=== PATIENT | female | born 1980 | race Two or more races ===

== ENCOUNTER 2023-06-12 12:51 | Inpatient (IN) | payer MEDICAID, OTHER ==
[~2023-06-12] VITALS: Ht 149.9 cm; Wt 95.2 kg
[2023-06-12] MEDS: NICOTINE 7MG/24HR TOPICAL PATCH TD ONE (02:46)
[2023-06-12 13:18] LABS: Basophils # (auto) 0.1 10 ^3/uL (0-0.2); Eosinophils # (auto) 0.5 10 ^3/uL (0-0.8); Eosinophils % (auto) 3.8 % (0.0-7.0); Hematocrit 45.8 % (36.0-46.0); Hemoglobin 15.1 g/dL (12.2-16.2); Lymphocytes # (auto) 4.9 10 ^3/uL (0.4-5.4); Lymphocytes % (auto) 36.4 % (10.0-50.0); Mean Corpuscular Hemoglobin 29.2 pg (28.0-32.0); Mean Corpuscular Volume 88.6 fL (80.0-100.0); Monocytes # (auto) 0.6 10 ^3/uL (0-1.3); Monocytes % (auto) 4.6 % (0.0-12.0); Neutrophils # (auto) 7.3 10 ^3/uL (1.6-8.6); Neutrophils % (auto) 54.2 % (37.0-80.0); Nucleated Red Blood Cells % 0.1 %; Red Blood Cells 5.17 10^6/uL (4.0-5.20); Red Cell Distribution Width 13.6 % (11.8-14.3); White Blood Cell 13.5 10^3/uL (4.4-10.8)
[2023-06-12 13:30] LABS: Alanine Aminotransferase 24 U/L (7-40); Albumin 4.9 g/dL (3.2-4.8); Alkaline Phosphatase 95 U/L (46-116); Anion Gap 5 (5-15); Aspartate Aminotransferase 20 U/L (13-40); BUN/Creatinine Ratio 12.8 (10.0-20.0); Bilirubin, Total 0.3 mg/dL (0.2-1.0); Blood Urea Nitrogen 10 mg/dL (9-23); Calcium 10.1 mg/dL (8.7-10.4); Carbon Dioxide 29 mmol/L (20-30); Chloride 106 mmol/L (98-107); Glucose 102 mg/dL (74-106); Magnesium 2.2 mg/dL (1.6-2.6); Potassium 4.4 mmol/L (3.5-5.1); Sodium 140 mmol/L (136-145); Total Protein 7.8 g/dL (5.7-8.2)
[2023-06-12 13:34] LABS: INR 1.01 (0.9-1.15); Partial Thromboplastin Time 31.5 SEC (24.5-34.5); Prothrombin Time 10.6 sec (9.3-11.8)
[2023-06-12] MEDS: SODIUM CHLORIDE 0.9% 1,000 ML IV SCH (17:30)
[2023-06-12] MEDS ORDERED: NITROGLYCERIN 0.4 MG SL TAB SL PRN (17:30)
[2023-06-12] MEDS ORDERED: MORPHINE SULFATE INJ 2 MG/ml SYRG IV PRN (17:30)
[2023-06-12 18:16] LABS: Urine Bacteria NONE SEEN /hpf (None Seen); Urine Blood Negative /uL (Negative); Urine Clarity HAZY (Clear); Urine Color Yellow (Yellow); Urine Mucus FEW (None Seen); Urine Protein, UAD Negative (Negative); Urine Specific Gravity 1.026 (1.001-1.035); Urine Urobilinogen Normal (Negative); Urine WBC 6 /hpf (0 - 5)
[2023-06-12 18:19] LABS: Amphetamine Screen, Urine Neg (NEGATIVE); Barbiturate Scree,Urine Neg (NEGATIVE); Benzodiazephine Screen, Urine Neg (NEGATIVE); Cannabinoid Screen, Urine Neg (NEGATIVE); Cocaine Screen, Urine Neg (NEGATIVE); Opiate Scree,Urine Neg (NEGATIVE); Phencyclidine Screen, Urine Neg (NEGATIVE)
[2023-06-12 20:08] LABS: Triglycerides 254 mg/dL (< 150)
[2023-06-12 20:09] LABS: LDL Cholesterol 152 mg/dL (< 100)
[2023-06-12 20:10] LABS: Cholesterol 225 mg/dL (< 200); HDL Cholesterol 58 mg/dL (40-59)
[2023-06-12] MEDS: SODIUM CHLOR 0.9% PF (SALINE LOCK) 10ML VIAL/SYR IV SCH (22:00)
[2023-06-13] VITALS (8 sets, daily range): BP systolic 148–154; BP diastolic 84–97; PULSE 86–109; RESP 18–22; TEMP 97.6–97.8; O2SAT 96–99
[2023-06-13] MEDS: cefTRIAXone 1GM/50ML D5W 50 ML IV ONE (02:42)
[2023-06-13] MEDS: SERTRALINE HCL 50 MG TAB PO ONE (02:42)
[2023-06-13] MEDS: ASPirin 325 MG TAB PO ONE (02:44)
[2023-06-13] MEDS: SODIUM CHLORIDE 0.9% 1,000 ML IV ONE (02:44)
[2023-06-13] MEDS: NITROGLYCERIN 0.4 MG SL TAB SL ONE (02:46)
[2023-06-13] MEDS: ATORVASTATIN 20 MG TAB PO SCH (02:57)
[2023-06-13 05:30] LABS: Basophils # (auto) 0.1 10 ^3/uL (0-0.2); Basophils % (auto) 0.8 % (0.0-2.0); Eosinophils # (auto) 0.6 10 ^3/uL (0-0.8); Eosinophils % (auto) 5.4 % (0.0-7.0); Hematocrit 43.2 % (36.0-46.0); Hemoglobin 14.1 g/dL (12.2-16.2); Lymphocytes # (auto) 4.8 10 ^3/uL (0.4-5.4); Lymphocytes % (auto) 41.7 % (10.0-50.0); Mean Corpuscular Hemoglobin 29.2 pg (28.0-32.0); Mean Corpuscular Hgb Conc. 32.7 g/dL (32.0-36.0); Mean Corpuscular Volume 89.4 fL (80.0-100.0); Monocytes # (auto) 0.8 10 ^3/uL (0-1.3); Monocytes % (auto) 6.5 % (0.0-12.0); Neutrophils # (auto) 5.3 10 ^3/uL (1.6-8.6); Neutrophils % (auto) 45.6 % (37.0-80.0); Nucleated Red Blood Cells % 0.1 %; Red Blood Cells 4.83 10^6/uL (4.0-5.20); Red Cell Distribution Width 13.7 % (11.8-14.3); White Blood Cell 11.6 10^3/uL (4.4-10.8)
[2023-06-13 05:45] LABS: Calcium 9.6 mg/dL (8.5-10.1); Carbon Dioxide 26 mmol/L (20-30)
[2023-06-13 05:51] LABS: BUN/Creatinine Ratio 12.3 (10.0-20.0); Blood Urea Nitrogen 9 mg/dL (9-23); Glucose 97 mg/dL (74-106)
[2023-06-13 05:52] LABS: Free T3 3.3 pg/mL (2.3-4.2); Free T4 (Free Thyroxine) 1.23 ng/dL (0.89-1.76)
[2023-06-13 06:02] LABS: Anion Gap 7 (5-15); Chloride 106 mmol/L (98-107); Potassium 4.2 mmol/L (3.5-5.1); Sodium 139 mmol/L (136-145)
[2023-06-13] MEDS: ERGOCALCIFEROL 50,000 UNIT(1.25MG) CAP PO SCH (08:36)
[2023-06-13] MEDS: NICOTINE 7MG/24HR TOPICAL PATCH TD SCH (08:37)
[2023-06-13] MEDS: SERTRALINE HCL 50 MG TAB PO SCH (08:38)
[2023-06-13] MEDS: cefTRIAXone 1GM/50ML D5W 50 ML IV SCH (08:38)
[2023-06-13 12:59] LABS: Erythrocyte Sedimentation Rate 8 mm/hr (0-20)
[2023-06-13] MEDS: ONDANSETRON HCL 4 MG/2 ML VIAL IV PRN (14:26)
[2023-06-13 21:59] LABS: Rapid Influenza A Negative (Negative); Rapid Influenza B Negative (Negative)
[2023-06-14] MEDS: ACETAMINOPHEN 500 MG TAB PO PRN (04:57)
[2023-06-14 05:00] VITALS: BP 126/80; PULSE 87; RESP 21; TEMP 98.1; O2SAT 97
[2023-06-14 05:30] LABS: COVID19 ANTIGEN SOFIA FIA NEGATIVE (NEGATIVE)
[2023-06-14 09:00] VITALS: BP 121/80; PULSE 79; RESP 18; TEMP 98.1; O2SAT 93
[2023-06-14 13:00] VITALS: BP 132/90; PULSE 88; RESP 18; TEMP 97.8; O2SAT 97
[2023-06-14] MEDS: IBUPROFEN 400 MG TAB PO PRN (16:51)
[2023-06-14 17:00] VITALS: BP 143/87; PULSE 77; RESP 19; TEMP 98; O2SAT 95
[2023-06-14] MEDS ORDERED: CEPH250C PO (17:39)
[2023-06-14 18:10] VITALS: BP 147/73
[2023-06-16 10:38] LABS: Free T3 2.94 pg/mL (2.3-4.2)
[2023-06-16 10:40] LABS: Free T4 (Free Thyroxine) 1.22 ng/dL (0.89-1.76)
== END 2023-06-14 18:30 | disposition home or self-care (01) | DRG 720 ==
LOC: ER 12:51 → TELE 17:20 → EEVIPCON 17:20 → TELE-WESTW 06-13 10:26
PROVIDERS: ADMIT Internal Medicine; ATTEND Nurse Practitioner Acute Care
DX: A41.9 Sepsis, unspecified organism (principal); E05.00 Thyrotoxicosis with diffuse goiter without thyrotoxic crisis or storm; R07.89 Other chest pain; E55.9 Vitamin D deficiency, unspecified; E66.01 Morbid (severe) obesity due to excess calories; N39.0 Urinary tract infection, site not specified; E78.5 Hyperlipidemia, unspecified; I51.89 Other ill-defined heart diseases; F41.9 Anxiety disorder, unspecified; F17.210 Nicotine dependence, cigarettes, uncomplicated; Z20.822 Contact with and (suspected) exposure to COVID-19; M47.812 Spondylosis without myelopathy or radiculopathy, cervical region; Z68.41 Body mass index [BMI] 40.0-44.9, adult
CPT/HCPCS: 36415; 71045; 80048; 80053; 80061; 80307; 81001; 82306; 82607; 83036; 83605; 83735; 83880; 84439; 84443; 84481; 84484; 84702; 85025; 85379; 85610; 85652; 85730; 86141; 87040; 87086; 87426; 87804; 93005; 93306; G0378; J2405

== ENCOUNTER → 2024-05-12 | Outpatient (CLI) | payer MEDICAID ==
[~2024-05-12] MED LIST: CEPH250C PO
[2024-05-12 08:58] LABS: Basophils # (auto) 0.1 10 ^3/uL (0-0.2); Basophils % (auto) 0.8 % (0.0-2.0); Eosinophils # (auto) 0.5 10 ^3/uL (0-0.8); Eosinophils % (auto) 5.4 % (0.0-7.0); Hematocrit 41.9 % (36.0-46.0); Hemoglobin 13.9 g/dL (12.2-16.2); Lymphocytes # (auto) 3.2 10 ^3/uL (0.4-5.4); Mean Corpuscular Hemoglobin 28.4 pg (28.0-32.0); Mean Corpuscular Hgb Conc. 33.2 g/dL (32.0-36.0); Mean Corpuscular Volume 85.6 fL (80.0-100.0); Monocytes # (auto) 0.8 10 ^3/uL (0-1.3); Monocytes % (auto) 8.4 % (0.0-12.0); Neutrophils # (auto) 4.6 10 ^3/uL (1.6-8.6); Neutrophils % (auto) 50.4 % (37.0-80.0); Platelet Count (auto) 348 10^3/uL (140-450); Red Blood Cells 4.89 10^6/uL (4.0-5.20); Red Cell Distribution Width 12.6 % (11.8-14.3); White Blood Cell 9.1 10^3/uL (4.4-10.8)
[2024-05-12 09:07] LABS: Alkaline Phosphatase 94 U/L (46-116); Anion Gap 6 (5-15); Carbon Dioxide 27 mmol/L (20-31); Chloride 107 mmol/L (98-107); Potassium 4.8 mmol/L (3.5-5.1); Sodium 140 mmol/L (136-145)
[2024-05-12 09:10] LABS: BUN/Creatinine Ratio 23.4 (10.0-20.0); Blood Urea Nitrogen 15 mg/dL (9-23); Triglycerides 138 mg/dL (< 150)
[2024-05-12 09:11] LABS: LDL Cholesterol 81 mg/dL (< 100)
[2024-05-12 09:12] LABS: Albumin 4.1 g/dL (3.2-4.8); Aspartate Aminotransferase 29 U/L (13-40); Bilirubin, Total 0.4 mg/dL (0.2-1.0); Cholesterol 139 mg/dL (< 200); HDL Cholesterol 47 mg/dL (40-59)
[2024-05-12 09:39] LABS: Alanine Aminotransferase 50 U/L (7-40); Calcium 10.5 mg/dL (8.7-10.4); Glucose 110 mg/dL (74-106)
== END | disposition home or self-care (01) ==
LOC: LAB 08:15
PROVIDERS: ATTEND Nurse Practitioner
DX: I10 Essential (primary) hypertension (principal); E78.5 Hyperlipidemia, unspecified; R73.9 Hyperglycemia, unspecified
CPT/HCPCS: 36415; 80053; 80061; 83036; 84443; 85025

== ENCOUNTER → 2024-09-15 | Outpatient (CLI) | payer MEDICAID ==
[~2024-09-15] VITALS: Ht 149.9 cm; Wt 88.5 kg
--- NOTE | 2024-09-15 10:49 | DVHCARD ---
Cardiology Stress Test [place] Treadmill Stress Test [place] Referring MD: MD Guy Protocol: Perfecto (with cardiolite) Reason for referral: Shortness of breath Medications: See chart Target heart Rate:@85%: 151 Percent MPHR: 178 METS: 7.60 Resting Heart rate: 90 Resting Blood Pressure: 139/76 Exercise Heart Rate: 171 Exercise Blood Pressure: 161/86 Reason for Termination of Test: Shortness of breath Baseline EKG: Normal sinus rhythm Stress EKG: Sinus tachycardia Functional Capacity: Mildly Decreased Heart Rate Response: Adequate Blood Pressure Response: Hypertensive Clinical response: Non-ischemic Arrhythmia?: No Cardiolite Injected?: Yes ST-T Changes: Non/Minimal Probability of Inducible Ische: Perfusion result pending Date of Service: September 15, 2024 Billing Provider: JANES YUAN Cardiology Common Codes: PROCEDURE ONLY Treadmill W/Cardiolite Nuclear: [id number], INTERP, RPT JANES YUAN September 15, 2024 10:49
--- NOTE | 2024-09-16 14:40 | DVHSR ---
APPROVED REPORT Exam: Nuclear Stress Test Indication: SOB BMI: 0 Medical History Medical History: Denied Allergies: No known drug allergies Stress Test Details Stress Test: Exercise stress testing was performed using a Perfecto protocol. HR Resting HR: 90 bpmMax Heart Rate (APMHR): 178.306367 bpm Max HR Achieved: 171 bpmTarget HR (85% APMHR): 151.976099 bpm % of APMHR: 96.07 Recovery HR: 110 bpm BP Resting BP: 139/76 mmHg Recovery BP: 161/86 mmHg ECG Resting ECG: Sinus Rhythm Clinical Reason for Termination: Dyspnea, Patient Request Exercise duration: 6 min 24 sec Nurse Comments Recieved ambulatory, A/Ox4 on RA, connected to school lunch monitor, VS stable. PIV S/L flushes well, revi ewed POC, pt verbalized understanding. Reji FRANCHISE FIELD CONSULTANT here to monitor exam. Treadmill test performed per protocol. Pt stable, tolerated well, VS returned to baseline. Pt to follow up with vamp strap ironer for results. Stress ECG Conclusion lvef 71% normal perfusion scan no severe ischemia noted NM EXAM: Myocardial Perfusion REST/STRESS Imaging Protocol: Rest Tc-99m/Stress Tc-99m 1 day Resting Data Rest SPECT myocardial perfusion imaging was performed in supine position 45 minutes following the int ravenous injection of 11.0 mCi of Tc-99m Sestamibi. Time of rest injection: 08:35 Date: 09/15/2024 Time of rest imagin:20 Date: 09/15/2024 Administration Route: IV Administration Site: Left Arm Pharmacologic Stress Pharmacologic stress test was performed by injecting Regadenoson 0.4 mg IV push followed by the intra venous injection of 30.4 mCi of Tc-99m Sestamibi. Time of stress injection: 10:30 Date: 09/15/2024 Time of stress imagin:30 Date: 09/15/2024 Gated Stress SPECT was performed 60 minutes after stress injection. The images were gated to evaluate regional wall motion and calculate left ventricular ejection fracti on. Stress only was performed in the Supine position. Nuclear Conclusion Nuclear Findings: negative for ischemia lvef 71% normal perfusion scan no severe ischemia noted
== END | disposition home or self-care (01) ==
LOC: XYW 08:08
PROVIDERS: ATTEND Internal Medicine
DX: R06.02 Shortness of breath (principal); R00.0 Tachycardia, unspecified; I10 Essential (primary) hypertension; E83.52 Hypercalcemia; E05.90 Thyrotoxicosis, unspecified without thyrotoxic crisis or storm; G47.33 Obstructive sleep apnea (adult) (pediatric); R09.89 Other specified symptoms and signs involving the circulatory and respiratory systems; R63.8 Other symptoms and signs concerning food and fluid intake; F17.200 Nicotine dependence, unspecified, uncomplicated
CPT/HCPCS: 78452; 93017; A9500